=== PATIENT | female | born 1930 | race Native Hawaiian/Other Pacific Islander ===

== ENCOUNTER 2019-04-27 20:37 | Emergency (ER) | payer OTHER ==
[~2019-04-27] VITALS: Ht 154.9 cm; Wt 68.0 kg
[2019-04-27 20:46] VITALS: BP 178/100; TEMP 97.5
[2019-04-27 21:32] LABS: PLATELET COUNT 196 K/uL (152-353)
[2019-04-27 21:36] LABS: POTASSIUM 3.1 mmol/L (3.6-5.2)
[2019-04-28] MEDS ORDERED: XANAX XR1 MG PO (00:15)
[2019-04-28] MEDS ORDERED: KP VITAMIN PO (00:16)
[2019-04-28] MEDS ORDERED: MULTI VITAMIN A1 TAB PO (00:18)
[2019-04-28] MEDS ORDERED: CLON0.5T36 PO (00:18)
[2019-04-28] MEDS ORDERED: DIVA125C PO ×2 (00:19→00:35)
[2019-04-28] MEDS ORDERED: ENSURE PO (00:23)
[2019-04-28] MEDS ORDERED: POTASSIUM CHLORIDE PO (00:28)
[2019-04-28] MEDS ORDERED: QUET25TA2 PO (00:29)
[2019-04-28] MEDS ORDERED: TYLENOL325 MG PO (00:30)
[2019-04-28] MEDS ORDERED: TYLENOL325 MG RE (00:31)
[2019-04-28] MEDS ORDERED: ANTACID & ANTIG1 SUS PO (00:32)
[2019-04-28] MEDS ORDERED: DULCOLAX10 MG RE (00:35)
[2019-04-28] MEDS ORDERED: FLEET ENEMA RE (00:36)
[2019-04-28] MEDS ORDERED: GUAIFENESIN DM PO (00:39)
[2019-04-28] MEDS ORDERED: IMODIUM A-D2 MG PO (00:39)
[2019-04-28] MEDS ORDERED: MELATONIN10 M1 PO (00:41)
[2019-04-28] MEDS ORDERED: TRAMADOL HYDROC50 MG PO (00:42)
[2019-04-28] MEDS ORDERED: MILK OF MA400 MG/5 M PO (00:43)
== END 2019-04-27 20:57 | disposition other institution (70) ==
LOC: ED 20:56
PROVIDERS: Emergency Medicine
DX: F03.91 Unspecified dementia, unspecified severity, with behavioral disturbance (principal); E86.0 Dehydration; E87.6 Hypokalemia; Z04.6 Encounter for general psychiatric examination, requested by authority
CPT/HCPCS: 36415; 80053; 85027; 93005; 99285